=== PATIENT | male | born 1960 | race Caucasian/White ===

== ENCOUNTER 2022-01-06 09:11 | Day surgery (SDC) | payer MEDICARE, MEDICAID, SELFPAY ==
[2021-12-31 10:36] VITALS: BMI 26.8
--- NOTE | 2022-01-03 09:04 | HO.ANESPROP2 ---
Documented by User: Nette Watts NP 01/03/22 09:07 HPI - Anesthesia Eval Consult details Narrative: 61yo M for Right Cataract Extraction IOL Insertion PCP cleared (NSTEMI with [facility] 06/2021) Oncology cleared (metastatic colon CA) No previous cataract on record Eliquis for hx PE Plavix for CAD [facility] Past Medical History Medical History (Updated 12/31/21 @ 10:43 by Ilene Santiago, MIGUELITO) Adenocarcinoma of sigmoid colon Elevated cholesterol Hemochromatosis History of chemotherapy Metastatic adenocarcinoma Myocardial infarction Pulmonary emboli PVC (premature ventricular contraction) Type 2 diabetes mellitus Surgical History Surgical History (Updated 12/31/21 @ 10:43 by Ilene Santiago RN) H/O colonoscopy Hx of colectomy Hx of heart artery stent Social History Social History (Updated 12/31/21 @ 10:48 by Ilene Santiago RN) Patient Tobacco Use Status: Never used Tobacco Are you DNR?: No Advance Directives: No Advance Directives Information Provided: Yes Nutrition Risks: No Nutritional Risk Meds Allergies Allergy/AdvReac Type Severity Reaction Status Date / Time simvastatin AdvReac Intermediate lethargy/muscle Verified 12/31/21 10:42 pain Home Medications Medication Instructions Recorded Confirmed Last Taken Type amlodipine 10 mg tablet 1 tab PO DAILY 12/31/21 12/31/21 01/06/22 History apixaban 5 mg tablet (Eliquis) 1 tab PO BID 12/31/21 12/31/21 01/06/22 History atorvastatin 80 mg tablet 1 tab PO BEDTIME 12/31/21 12/31/21 Unknown History carvedilol 12.5 mg tablet 1 tab PO BID 12/31/21 12/31/21 01/06/22 History clopidogrel 75 mg tablet 1 tab PO DAILY 12/31/21 12/31/21 01/06/22 History empagliflozin 25 mg tablet 1 tab PO QAM 12/31/21 12/31/21 Unknown History (Jardiance) gabapentin 300 mg capsule 2 cap PO TID 12/31/21 12/31/21 01/06/22 History lisinopril 20 mg tablet 1 tab PO DAILY 12/31/21 12/31/21 01/06/22 History loperamide 2 mg capsule 2 cap PO Q4H PRN Loose Stool 12/31/21 12/31/21 01/06/22 History nitroglycerin 0.4 mg sublingual 0.4 mg sublingual ONCE PRN Angina 12/31/21 12/31/21 Unknown History tablet prochlorperazine maleate 10 mg 1 tab PO Q6H PRN nausea/vomiting 12/31/21 12/31/21 Unknown History tablet Exam Exam Date and Time: January 03, 2022 0904 Height,Weight and Vital Signs: Height 6 ft 0.99 in Weight 92.1 kg Assessment and Plan Assessment Anesthesia Assessment: Chart Reviewed Documented by User: Dianne Varghese MD 01/06/22 10:45 [facility] Past Medical History Medical History (Updated 12/31/21 @ 10:43 by Ilene Santiago RN) Adenocarcinoma of sigmoid colon Elevated cholesterol Hemochromatosis History of chemotherapy Metastatic adenocarcinoma Myocardial infarction Pulmonary emboli PVC (premature ventricular contraction) Type 2 diabetes mellitus Family History Family history of problems with anesthesia: No Surgical History Surgical History (Updated 12/31/21 @ 10:43 by Ilene Santiago RN) H/O colonoscopy Hx of colectomy Hx of heart artery stent History of Problems with Anesthesia: No Social History Social History (Updated 12/31/21 @ 10:48 by Ilene Santiago RN) Patient Tobacco Use Status: Never used Tobacco Are you DNR?: No Advance Directives: No Advance Directives Information Provided: Yes Nutrition Risks: No Nutritional Risk Meds Allergies Allergy/AdvReac Type Severity Reaction Status Date / Time simvastatin AdvReac Intermediate lethargy/muscle Verified 12/31/21 10:42 pain Home Medications Medication Instructions Recorded Confirmed Last Taken Type amlodipine 10 mg tablet 1 tab PO DAILY 12/31/21 12/31/21 01/06/22 History apixaban 5 mg tablet (Eliquis) 1 tab PO BID 12/31/21 12/31/21 01/06/22 History atorvastatin 80 mg tablet 1 tab PO BEDTIME 12/31/21 12/31/21 Unknown History carvedilol 12.5 mg tablet 1 tab PO BID 12/31/21 12/31/21 01/06/22 History clopidogrel 75 mg tablet 1 tab PO DAILY 12/31/21 12/31/21 01/06/22 History empagliflozin 25 mg tablet 1 tab PO QAM 12/31/21 12/31/21 Unknown History (Jardiance) gabapentin 300 mg capsule 2 cap PO TID 12/31/21 12/31/21 01/06/22 History lisinopril 20 mg tablet 1 tab PO DAILY 12/31/21 12/31/21 01/06/22 History loperamide 2 mg capsule 2 cap PO Q4H PRN Loose Stool 12/31/21 12/31/21 01/06/22 History nitroglycerin 0.4 mg sublingual 0.4 mg sublingual ONCE PRN Angina 12/31/21 12/31/21 Unknown History tablet prochlorperazine maleate 10 mg 1 tab PO Q6H PRN nausea/vomiting 12/31/21 12/31/21 Unknown History tablet Exam Height,Weight and Vital Signs: Height 6 ft 0.99 in Weight 92.1 kg Vital Signs Temp Pulse Resp BP Pulse Ox O2 Del Method 01/06/22 09:45 98 F 61 19 124/76 96 Room Air Pertinent Lab Results Pertinent Lab Results: Lab Results 01/06/22 Range/Units 09:59 POC Glucose 160 H (60-115) mg/dL Airway Mallampati Class: II TM Dist: >3cm Neck ROM: Full Partial: Upper and Lower Heart: RRR Lungs: CTAB Assessment and Plan Assessment Anesthesia Assessment: Anesthesia Plan Discussed Final Anesthetic Review Family History of Problems with Anesthesia: No History of Problems with Anesthesia: No NPO: Yes ASA Class: III Final Preanesthetic Review: No Changes in Pt Med Stat, Meds/Allgs Chart Reviewed, Consent Obtained/Reviewed and Anes Risks/Benef Reviewed Patient Risk: Intermediate Procedure Risk: Low Assessment/Block/Sedation in SS: Assess/Block/Sedation-SS Anesthetic Plan Anesthetic Plan: MAC: Disposition: Standard PACU
[2022-01-06 09:45] VITALS: BP 124/76; PULSE 61; RESP 19; TEMP 36.6; O2SAT 96
[2022-01-06 10:03] LABS: Glucose, Whole Blood 160 mg/dL (60-115)
[2022-01-06] MEDS: Phenylephrine HCL 2.5% Oph SoL 2 ML BOTTLE 1 DROP EYE-RIGHT ×3 (10:10→10:13)
[2022-01-06] MEDS: Tropicamide 1 % Ophth Sol 3 ML BTL 1 DROP EYE-RIGHT ×3 (10:10→10:13)
[2022-01-06] MEDS: Cyclopentolate 1 % Ophth Sol 2 ML DRPBTL 1 DROP EYE-RIGHT ×3 (10:10→10:14)
[2022-01-06] MEDS: Lactated Ringers 500 ML 50 ML IV (10:10)
[2022-01-06] MEDS: Tetracaine HCl/PF 0.5% Oph Sol 4 ML DROPS 1 DROP EYE-RIGHT (10:10)
--- NOTE | 2022-01-06 11:50 | HO.PNOPHT ---
Ophthalmology Procedure Procedure Date of Service: 01/06/22 Ophthalmology Viscoelastic: Healon Duet Dual Pack Pro Ophthalmology Lenses: TECNIS [id number] (19.5) Procedure Notes: PREOPERATIVE DIAGNOSIS: Decreased visual acuity right eye secondary to cataract POSTOPERATIVE DIAGNOSIS: Same PROCEDURE: Right cataract extraction with intraocular lens insertion SURGEON: Gilberto Ruzi M.D. ANESTHESIA: Topical/MAC ESTIMATED BLOOD LOSS: None COMPLICATIONS: None After obtaining informed consent, the patient was brought to the operating room suite and placed in the supine position. After adequate sedation per anesthesia, topical drops of Tetracaine were given to the right eye. The eye was then prepped and draped in the usual sterile fashion. The operating room microscope was then positioned over the operative eye and a lid speculum placed. A paracentesis was created. Viscoelastic was then instilled into the anterior chamber. A three plane incision was then created temporally, utilizing a 2.85 mm keratome. Capsulotomy forceps were then utilized to create a circular tear capsulotomy. Hydrodissection and hydrodelineation were carried out until adequate mobilization of the nucleus occurred. Phacoemulsification was then utilized to remove the dense central nucleus followed by removal of the cortical material utilizing the automated aspiration irrigation unit. Viscoelastic was instilled into the posterior capsular bag followed by placement of a posterior chamber intraocular lens without difficulty. The residual Viscoelastic was then removed utilizing the automated IA machine. The wound was checked and found to be watertight. The patient tolerated the procedure well and the lid speculum was removed. Intracameral injection of Vigamox 0.1 mL followed by a subtenon injection of Kenalog-40 0.2 mL were administered. The patient will be seen in the a.m.
[2022-01-06 12:22] VITALS: BP 125/77; PULSE 60; RESP 18; TEMP 36.1; O2SAT 97
== END 2022-01-06 12:26 | disposition home or self-care (01) ==
PROVIDERS: PCP Family Medicine; Visit Provider Ophthalmology
PROC: (CPT 66985; principal; 2022-01-06 11:40)
DX: H25.11 Age-related nuclear cataract, right eye (principal); H52.4 Presbyopia; H40.013 Open angle with borderline findings, low risk, bilateral; E11.9 Type 2 diabetes mellitus without complications; I10 Essential (primary) hypertension; I25.2 Old myocardial infarction; E83.119 Hemochromatosis, unspecified; I26.99 Other pulmonary embolism without acute cor pulmonale; Z79.84 Long term (current) use of oral hypoglycemic drugs; Z79.01 Long term (current) use of anticoagulants; Z79.899 Other long term (current) drug therapy; Z88.8 Allergy status to other drugs, medicaments and biological substances; Z85.038 Personal history of other malignant neoplasm of large intestine; Z85.118 Personal history of other malignant neoplasm of bronchus and lung; Z92.21 Personal history of antineoplastic chemotherapy; Z90.49 Acquired absence of other specified parts of digestive tract
CPT/HCPCS: 66984; 82947; J2250; J3010; J3300; V2632

== ENCOUNTER 2022-01-20 08:05 | Day surgery (SDC) | payer MEDICARE, MEDICAID, SELFPAY ==
[2021-12-31 10:48] VITALS: BMI 26.8
--- NOTE | 2022-01-16 15:23 | MHC.SHP ---
Pre-Procedural Eval Section A Date of Service: 01/16/22 The patient is an INPATIENT: No Changes since office visit: No Cold of Flu in the past 2 weeks, No New Medical Problems, No Changes in Medication and No Patient answered all questions The History & Physical has been completed within 30 days and I have reviewed it.: Yes Section B Chief Complaint: Age-related nuclear cataract, left eye Allergies: Allergies Allergy/AdvReac Type Severity Reaction Status Date / Time simvastatin AdvReac Intermediate lethargy/muscle Verified 12/31/21 10:42 pain Plan Diagnosis/Plan: Unchanged I have reviewed the history and physical and performed a pertinent physical examination on my patient. No changes have occurred unless specified.
--- NOTE | 2022-01-17 08:43 | P.CONAN_ITS ---
Documented by User: Nette Watts NP 01/17/22 08:44 HPI - Anesthesia Eval Consult details Narrative: 61yo M for Left Cataract Extraction IOL Insertion PCP cleared Right eye 01/06 with MAC: Fent 50, Midaz 1 Eliquis for hx PE PMFSH Past Medical History Medical History Adenocarcinoma of sigmoid colon Elevated cholesterol Hemochromatosis History of chemotherapy Metastatic adenocarcinoma Myocardial infarction Pulmonary emboli PVC (premature ventricular contraction) Type 2 diabetes mellitus Family History Family history of problems with anesthesia: No Surgical History Surgical History H/O colonoscopy Hx of colectomy Hx of heart artery stent History of Problems with Anesthesia: No Social History Social History Patient Tobacco Use Status: Never used Tobacco Advance Directives: No Advance Directives Information Provided: Yes Meds Allergies Allergy/AdvReac Type Severity Reaction Status Date / Time simvastatin AdvReac Intermediate lethargy/muscle Verified 01/20/22 09:13 pain Home Medications Medication Instructions Recorded Confirmed Last Taken Type amlodipine 10 mg tablet 1 tab PO DAILY 12/31/21 12/31/21 01/20/22 History apixaban 5 mg tablet (Eliquis) 1 tab PO BID 12/31/21 12/31/21 01/20/22 History atorvastatin 80 mg tablet 1 tab PO BEDTIME 12/31/21 12/31/21 Unknown History carvedilol 12.5 mg tablet 1 tab PO BID 12/31/21 12/31/21 01/20/22 History clopidogrel 75 mg tablet 1 tab PO DAILY 12/31/21 12/31/21 01/20/22 History empagliflozin 25 mg tablet 1 tab PO QAM 12/31/21 12/31/21 Unknown History (Jardiance) gabapentin 300 mg capsule 2 cap PO TID 12/31/21 12/31/21 01/20/22 History lisinopril 20 mg tablet 1 tab PO DAILY 12/31/21 12/31/21 01/20/22 History loperamide 2 mg capsule 2 cap PO Q4H PRN Loose Stool 12/31/21 12/31/21 01/20/22 History nitroglycerin 0.4 mg sublingual 0.4 mg sublingual ONCE PRN Angina 12/31/21 12/31/21 Unknown History tablet prochlorperazine maleate 10 mg 1 tab PO Q6H PRN nausea/vomiting 12/31/21 12/31/21 Unknown History tablet Exam Exam Date and Time: January 17, 2022 0843 Height,Weight and Vital Signs: Height 6 ft 0.99 in Weight 92.1 kg Assessment and Plan Assessment Anesthesia Assessment: Chart Reviewed Final Anesthetic Review Family History of Problems with Anesthesia: No History of Problems with Anesthesia: No Documented by User: Thomas Carrillo MD 01/20/22 09:45 [facility] Past Medical History Medical History Adenocarcinoma of sigmoid colon Elevated cholesterol Hemochromatosis History of chemotherapy Metastatic adenocarcinoma Myocardial infarction Pulmonary emboli PVC (premature ventricular contraction) Type 2 diabetes mellitus Surgical History Surgical History H/O colonoscopy Hx of colectomy Hx of heart artery stent Social History Social History Patient Tobacco Use Status: Never used Tobacco Advance Directives: No Advance Directives Information Provided: Yes Meds Allergies Allergy/AdvReac Type Severity Reaction Status Date / Time simvastatin AdvReac Intermediate lethargy/muscle Verified 01/20/22 09:13 pain Home Medications Medication Instructions Recorded Confirmed Last Taken Type amlodipine 10 mg tablet 1 tab PO DAILY 12/31/21 12/31/21 01/20/22 History apixaban 5 mg tablet (Eliquis) 1 tab PO BID 12/31/21 12/31/21 01/20/22 History atorvastatin 80 mg tablet 1 tab PO BEDTIME 12/31/21 12/31/21 Unknown History carvedilol 12.5 mg tablet 1 tab PO BID 12/31/21 12/31/21 01/20/22 History clopidogrel 75 mg tablet 1 tab PO DAILY 12/31/21 12/31/21 01/20/22 History empagliflozin 25 mg tablet 1 tab PO QAM 12/31/21 12/31/21 Unknown History (Jardiance) gabapentin 300 mg capsule 2 cap PO TID 12/31/21 12/31/21 01/20/22 History lisinopril 20 mg tablet 1 tab PO DAILY 12/31/21 12/31/21 01/20/22 History loperamide 2 mg capsule 2 cap PO Q4H PRN Loose Stool 12/31/21 12/31/21 01/20/22 History nitroglycerin 0.4 mg sublingual 0.4 mg sublingual ONCE PRN Angina 12/31/21 12/31/21 Unknown History tablet prochlorperazine maleate 10 mg 1 tab PO Q6H PRN nausea/vomiting 12/31/21 12/31/21 Unknown History tablet Exam Airway Mallampati Class: II Neck ROM: Full Partial: Upper and Lower Heart: [id number] Lungs: cta b/l Assessment and Plan Assessment Anesthesia Assessment: Anesthesia Plan Discussed Final Anesthetic Review NPO: Yes ASA Class: III Final Preanesthetic Review: No Changes in Pt Med Stat, Meds/Allgs Chart Reviewed, Consent Obtained/Reviewed and Anes Risks/Benef Reviewed Patient Risk: Intermediate Procedure Risk: Low Assessment/Block/Sedation in SS: Assess/Block/Sedation-SS Anesthetic Plan Anesthetic Plan: MAC: and Agree w/ Assess. and Plan Disposition: Standard PACU
[2022-01-20 09:04] VITALS: BP 126/82; PULSE 64; RESP 18; TEMP 36.7; O2SAT 97
[2022-01-20] MEDS: Lactated Ringers 500 ML 50 ML IV (09:06)
[2022-01-20] MEDS: Tetracaine HCl/PF 0.5% Oph Sol 4 ML DROPS 1 DROP EYE-LEFT (09:06)
[2022-01-20] MEDS: Cyclopentolate 1 % Ophth Sol 2 ML DRPBTL 1 DROP EYE-LEFT ×3 (09:07→09:17)
[2022-01-20] MEDS: Tropicamide 1 % Ophth Sol 3 ML BTL 1 DROP EYE-LEFT ×3 (09:07→09:17)
[2022-01-20] MEDS: Phenylephrine HCL 2.5% Oph SoL 2 ML BOTTLE 1 DROP EYE-LEFT ×3 (09:07→09:17)
--- NOTE | 2022-01-20 09:08 | PC.NURSE ---
IV attempt and insertion completed by raghu grover rn
[2022-01-20 09:11] LABS: Glucose, Whole Blood 173 mg/dL (60-115)
[2022-01-20] MEDS: Ketorolac Tromethamine 0.5% Op 5 ML DROPS 1 DROP EYE-LEFT ×3 (09:12→09:34)
--- NOTE | 2022-01-20 10:49 | HO.PNOPHT ---
Ophthalmology Procedure Procedure Date of Service: 01/20/22 Ophthalmology Viscoelastic: Healon Duet Dual Pack Pro Ophthalmology Lenses: TECNIS [id number] (19.5) Procedure Notes: PREOPERATIVE DIAGNOSIS: Decreased visual acuity left eye secondary to cataract POSTOPERATIVE DIAGNOSIS: Same PROCEDURE: Left cataract extraction with intraocular lens insertion SURGEON: Gilberto Ruiz M.D. ANESTHESIA: Topical/MAC ESTIMATED BLOOD LOSS: None COMPLICATIONS: None After obtaining informed consent, the patient was brought to the operation room suite and placed in the supine position. After adequate sedation per anesthesia, topical drops of Tetracaine were given to the left eye. The eye was then prepped and draped in the usual sterile fashion. The operating room microscope was then positioned over the operative eye and a lid speculum placed. A paracentesis was created. Viscoelastic was then instilled into the anterior chamber. A three plane incision was then created temporally, utilizing a 2.85 mm keratome. Capsulotomy forceps were then utilized to create a circular tear capsulotomy. Hydrodissection and hydrodelineation were carried out until adequate mobilization of the nucleus occurred. Phacoemulsification was then utilized to remove the dense central nucleus followed by removal of the cortical material utilizing the automated aspiration irrigation unit. Viscoat elastic was instilled into the posterior capsular bag followed by placement of a posterior chamber intraocular lens without difficulty. The residual Viscoat elastic was then removed utilizing the automated IA machine. The wound was check and found to be watertight. The patient tolerated the procedure well and the lid speculum was removed. Intracameral injection of Vigamox 0.1 mL followed by a subtenon injection of Kenalog-40 0.2 mL were administered. The patient will be seen in the a.m.
[2022-01-20 11:23] VITALS: BP 106/74; PULSE 67; RESP 18; TEMP 36.6; O2SAT 99
== END 2022-01-20 11:45 | disposition home or self-care (01) ==
PROVIDERS: PCP Family Medicine; Visit Provider Ophthalmology
PROC: (CPT 66985; principal; 2022-01-20 10:00)
DX: H25.12 Age-related nuclear cataract, left eye (principal); H52.4 Presbyopia; H40.013 Open angle with borderline findings, low risk, bilateral; C18.7 Malignant neoplasm of sigmoid colon; C78.02 Secondary malignant neoplasm of left lung; C78.01 Secondary malignant neoplasm of right lung; E11.9 Type 2 diabetes mellitus without complications; I10 Essential (primary) hypertension; Z92.21 Personal history of antineoplastic chemotherapy; I25.2 Old myocardial infarction; Z88.8 Allergy status to other drugs, medicaments and biological substances; Z79.01 Long term (current) use of anticoagulants; Z79.84 Long term (current) use of oral hypoglycemic drugs; Z79.899 Other long term (current) drug therapy
CPT/HCPCS: 66984; 82947; J2250; J3300; V2632